=== PATIENT | female | born 1965 | race Caucasian/White ===

== ENCOUNTER 2024-01-19 09:31 | Emergency (ER) | payer OTHER, SELFPAY ==
[2024-01-19 09:36] VITALS: BP 160/81; PULSE 93; RESP 20; TEMP 36.8; O2SAT 96
--- NOTE | 2024-01-19 09:55 | ED.URI ---
HPI - URI/Sore Throat General Chief Complaint: Upper Respiratory Infection Stated Complaint: Sore Throat Time Seen by Provider: 01/19/24 09:56 Source: patient and RN notes reviewed Mode of arrival: ambulatory Limitations: no limitations History of Present Illness HPI Narrative: 58-year-old female presented for complaint of sinus pressure/congestion and cough. Onset today. Endorses exposure to covid. Denies sob, wheezing, n/v/d, fever/chills. MD elicited complaint: cough Related Data Home Medications Medication Instructions Recorded Confirmed lisinopril 20 tablet 01/19/24 mg-hydrochlorothiazide 12.5 mg tablet meloxicam 15 mg tablet mg 01/19/24 metoprolol succinate 50 mg mg PO 01/19/24 tablet,extended release 24 hr pantoprazole 20 mg tablet,delayed mg PO 01/19/24 release Allergies Allergy/AdvReac Type Severity Reaction Status Date / Time Penicillins Allergy Unknown Verified 01/19/24 09:46 Review of Systems Review of Systems: CONSTITUTIONAL: Denies malaise, chills, sweats, fever EYES: Denies visual changes, redness, or discharge ENT: Reports rhinorrhea, congestion, sinus pain, denies otalgia, sore throat CARDIOVASCULAR: Denies chest pain, palpitations, edema RESPIRATORY: Reports cough, Denies dyspnea GASTROINTESTINAL: Denies abdominal pain, nausea, vomiting, diarrhea SKIN: Denies rash or itching MUSCULOSKELETAL: denies myalgia NEUROLOGIC: Denies headache Exam Narrative: GENERAL: mildly Ill-appearing, nontoxic EYES: conjunctivae clear ENT: Mucous membranes moist. TM pearly naqvi with dull light reflex bilaterally; no tragal tenderness. no drooling, no hoarseness, no trismus, uvula midline. No tripod positioning, muffled voice, soft palate or pharyngeal wall bulging NECK: Supple. No lymphadenopathy CHEST: Clear to auscultation, breath sounds equal. No wheezing, rhonchi, rales, or stridor. No respiratory distress, speaks in full sentences. HEART: Regular rate and rhythm. No murmur heard. SKIN: Warm, dry, no rash. NEURO: Alert and oriented x3. PSYCH: Normal mood and affect Course Course Emergency Course: Patient is aware of diagnosis, understands and agrees to treatment plan. Anticipatory guidance given. Patient agrees to follow-up as directed and is aware of reasons to seek care at the emergency department. Portions of this record may have been created with voice recognition software Level of Care: Express Care Visit Vital Signs Vital signs: Vital Signs Temperature 98.2 F 01/19/24 09:36 Pulse Rate 93 01/19/24 09:36 Respiratory Rate 20 01/19/24 09:36 Blood Pressure 160/81 H 01/19/24 09:36 Pulse Oximetry 96 01/19/24 09:36 Oxygen Delivery Room Air 01/19/24 09:36 Temperature 98.2 F 01/19/24 09:36 Pulse Rate 93 01/19/24 09:36 Respiratory Rate 20 01/19/24 09:36 Blood Pressure 160/81 H 01/19/24 09:36 Pulse Oximetry 96 01/19/24 09:36 Oxygen Delivery Room Air 01/19/24 09:36 reviewed MDM - URI/Sore Throat MDM Narrative Medical decision making narrative: positive COVID test. Discussed elevated blood pressure reading. Patient has not taken BP medicines yet. Discussed physical exam findings. Advised supportive measures and signs/symptoms to go to the ER. Pt is appropriate for outpt treatment and f/u. Differential Diagnosis Differential diagnosis: Likely upper respiratory infection, sinusitis and viral infection Discharge Plan Discharge Clinical Impression: COVID-19 Patient Disposition: Home, Self-Care Condition: Stable Instructions: COVID-19 (Coronavirus Disease 2019) (ED) Additional Instructions: Your rapid COVID test was positive today. The following updated recommendations have been made by the CDC and local Health Departments, regarding COVID-19: - When people get sick with a respiratory virus, they stay home and away from others. - Return to normal activities when, for at least 24 hours, symptoms are impr
[2024-01-19 10:00] LABS: EDCOVIDSCREEN Positive (Negative)
== END 2024-01-19 10:06 | disposition home or self-care (01) ==
PROVIDERS: Emergency Provider Nurse Practitioner Family
DX: U07.1 COVID-19 (principal)
CPT/HCPCS: 87635; 99202; G0463